=== PATIENT | male | born 1985 | race Caucasian/White ===

== ENCOUNTER 2022-09-23 09:27 | Emergency (ER) | payer SELFPAY ==
[~2022-09-23] VITALS: Ht 170.2 cm; Wt 83.9 kg
--- OUTSIDE RECORDS SUMMARY | 2022-09-23 09:32 | XMS ---
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 Jovani has no Care Guidelines for this patient. Zoya VISIT COUNT (12 MO.) 1 CARLITO Harvey TOTAL 1 NOTE: Visits indicate total known visits. ED/C VISIT TRACKING (12 MO.) 09/23/2022 09:29 CARLITO Hernadez OR TYPE: Emergency COMPLAINT: - L SIDE FACIAL PAIN/NUMBNESS INPATIENT VISIT TRACKING (12 MO.) No inpatient visits to display in this time frame [email or web address]
[2022-09-23] MEDS ORDERED: DOXYCYCLINE HY100 MG PO (11:32)
[2022-09-23] MEDS ORDERED: CLEOCIN T30 ML TOP (11:32)
== END 2022-09-23 12:07 | disposition home or self-care (01) ==
LOC: ED 09:27
DX: L73.9 Follicular disorder, unspecified (principal)
CPT/HCPCS: 99283